=== PATIENT | female | born 1975 | race Caucasian/White ===

== ENCOUNTER 2018-04-06 19:17 | Emergency (ER) | payer OTHER ==
[2018-04-06 19:29] VITALS: RESP 18
[2018-04-06] MEDS ORDERED: SODIUM CHLORIDE 0.9% 1,000 ML IV STA ×2 (19:35)
[2018-04-06] MEDS ORDERED: KETOROLAC 30 MG/ML 1 ML VIAL IVP STA (19:35)
[2018-04-06] MEDS ORDERED: RX INFO: IV CONTRAST WAS GIVEN 1 EACH MISC MISCELLANE PRN (19:35)
--- NOTE | 2018-04-06 19:38 | ED ---
Abdominal Pain HPI - General Chief Complaint: Abdominal Pain Stated Complaint: Female Time Seen by Provider: 04/06/18 19:29 Source: patient Mode of arrival: ambulatory Limitations: no limitations - History of Present Illness Initial Comments: This 42-year-old white female presents with a complaint of abdominal pain which started yesterday. She states that it started fairly suddenly and is fairly severe. She relates that it is diffuse in nature but worse in the left upper quadrant more than the right upper quadrant but also into the midepigastric region. She has some slight left flank pain as well. She denies any nausea, vomiting, constipation, diarrhea, fever, or chills. She apparently had some hematuria yesterday. She was seen at the urgent care and they diagnosed her with a urinary tract infection and put her on some antibiotics. She states that it is more severe she lies on her left side. She denies any other complaints or modifying factors. She does have a history of kidney stones when she was 18 years old but this pain is somewhat different. No other complaints or modifying factors. - Related Data Home Medications Medication Instructions Recorded Confirmed Dextroamphetamine/Amphetamine 20 mg PO BID 08/16/16 04/06/18 [Adderall] Previous Rx's Medication Instructions Recorded Nitrofurantoin Monohyd/M-Cryst 100 mg PO Q12HR #6 cap 04/06/18 [Macrobid] traMADol HCl [Ultram] 50 - 100 mg PO Q6H PRN #15 tab 04/06/18 Allergies Allergy/AdvReac Type Severity Reaction Status Date / Time No Known Allergies Allergy Verified 04/06/18 19:46 Review of Systems ROS Statement: Those systems with pertinent positive or pertinent negative responses have been documented in the HPI. ROS Other: All systems not noted in ROS Statement are negative. Past Medical History Past Medical History: No Reported History History of Any Multi-Drug Resistant Organisms: None Reported Past Surgical History: No Surgical Hx Reported Past Anesthesia/Blood Transfusion Reactions: Motion Sickness Additional Past Anesthesia/Blood Transfusion Reaction / Comment(s): MILD MOTION SICKNESS. ONLY LOCAL ANESTHESIA, NO REACTION. Past Psychological History: ADD/ADHD, Anxiety Smoking Status: Current every day smoker Past Alcohol Use History: Rare Past Drug Use History: None Reported - Past Family History Father Family Medical History: Cancer General Exam - General Exam Comments Initial Comments: GENERAL: The patient is well nourished and well hydrated. VITAL SIGNS: Heart rate, blood pressure, respiratory rate reviewed as recorded in nurse's notes. EYES: Pupils are round and reactive. Extraocular movements are intact. No conjunctival / lid redness or swelling. ENT: No external evidence of injury, swelling, or ecchymosis. Airway is patent. Throat is clear. NECK: Nontender. No swelling or evidence of injury. No subcutaneous emphysema. Trachea is midline. No thyroid mass. HEART: Regular rate and rhythm. Good peripheral pulses. LUNGS/CHEST: Breath sounds clear and equal bilaterally. No rales, rhonchi, or wheezes. No ecchymosis, subcutaneous emphysema, or tenderness. ABDOMEN: There is diffuse abdominal tenderness somewhat worse in the left upper abdomen. There is some tenderness into the left flank as well. No palpable masses or organomegaly. No peritoneal signs. No abdominal wall swelling or ecchymosis. EXTREMITIES: No extremity tenderness. Normal muscle tone and function. No thoracolumbar tenderness. NEUROLOGIC: Sensation is grossly intact. Cranial nerve exam reveals face is symmetrical, tongue is midline, speech is clear. SKIN: No abrasions or ecchymosis is noted. No induration or masses noted. PSYCHIATRIC: Alert and oriented. Appropriate behavior and judgment. Limitations: no limitations Course Vital Signs 04/06/18 04/06/18 19:27 21:25 Temperature 98.9 F Pulse Rate 93 83 Respiratory 18 18 Rate Blood Pressure 126/71 107/64 O2 Sat by Pulse 96 99 Oximetry Medical Decision Making - Medical Decision Making The patient was seen and examined. All diagnostics were reviewed. An IV is started and she is hydrated. She does receive some Toradol. She has significant relief with the Toradol. The laboratory does show slight leukocytosis. The urine does show evidence of an infection. She receives a gram of Rocephin intravenously. The computed tomography scan of the abdomen and pelvis does not show any acute significant abnormalities other than a slightly enlarged uterus. The radiologist recommends follow-up in this regard with a pelvic ultrasound. This does not correlate with her current pain as her pain is primarily into the left upper abdomen and flank. It is felt as though she likely does have a pyelonephritis and urinary tract infection. It is felt as though she is stable for outpatient treatment. She is instructed to follow- up with her cultures with her primary doctor in 3 days. Return parameters are discussed. She does relate that she was prescribed Macrodantin for 7 days through the urgent care. OP prescribed another 3 days' worth of the antibiotic for a total of 10 days. - Lab Data Result diagrams: 04/06/18 20:08 04/06/18 20:08 Lab Results 04/06/18 04/06/18 04/06/18 Range/Units 20:08 20:08 20:08 WBC 11.0 H (3.8-10.6) k/uL RBC 3.99 (3.80-5.40) m/uL Hgb 12.6 (11.4-16.0) gm/dL Hct 37.8 (34.0-46.0) % MCV 94.7 (80.0-100.0) fL MCH 31.6 (25.0-35.0) pg MCHC 33.3 (31.0-37.0) g/dL RDW 12.6 (11.5-15.5) % Plt Count 283 (150-450) k/uL Neutrophils % 83 % Lymphocytes % 9 % Monocytes % 5 % Eosinophils % 1 % Basophils % 0 % Neutrophils # 9.1 H (1.3-7.7) k/uL Lymphocytes # 1.0 (1.0-4.8) k/uL Monocytes # 0.6 (0-1.0) k/uL Eosinophils # 0.1 (0-0.7) k/uL Basophils # 0.0 (0-0.2) k/uL PT 10.5 (9.0-12.0) sec INR 1.1 (<1.2) APTT 26.5 (22.0-30.0) sec Sodium 141 (137-145) mmol/L Potassium 3.8 (3.5-5.1) mmol/L Chloride 103 (98-107) mmol/L Carbon Dioxide 26 (22-30) mmol/L Anion Gap 12 mmol/L BUN 7 (7-17) mg/dL Creatinine 0.63 (0.52-1.04) mg/dL Est GFR (CKD-EPI)AfAm >90 (>60 ml/min/1.73 sqM) Est GFR (CKD-EPI)NonAf >90 (>60 ml/min/1.73 sqM) Glucose 93 (74-99) mg/dL Calcium 9.2 (8.4-10.2) mg/dL Total Bilirubin 0.5 (0.2-1.3) mg/dL AST 16 (14-36) U/L ALT 24 (9-52) U/L Alkaline Phosphatase 79 (38-126) U/L Total Protein 6.7 (6.3-8.2) g/dL Albumin 3.9 (3.5-5.0) g/dL Amylase 46 (30-110) U/L Lipase 24 (23-300) U/L Urine Color Urine Appearance (Clear) Urine pH (5.0-8.0) Ur Specific [place] (1.001-1.035) Urine Protein (Negative) Urine Glucose (UA) (Negative) Urine Ketones (Negative) Urine Blood (Negative) Urine Nitrite (Negative) Urine Bilirubin (Negative) Urine Urobilinogen (<2.0) mg/dL Ur Leukocyte Esterase (Negative) Urine RBC (0-5) /hpf Urine WBC (0-5) /hpf Ur Squamous Epith Cells (0-4) /hpf Urine HCG, Qual (Not Detectd) 04/06/18 04/06/18 Range/Units 20:08 20:08 WBC (3.8-10.6) k/uL RBC (3.80-5.40) m/uL Hgb (11.4-16.0) gm/dL Hct (34.0-46.0) % MCV (80.0-100.0) fL MCH (25.0-35.0) pg MCHC (31.0-37.0) g/dL RDW (11.5-15.5) % Plt Count (150-450) k/uL Neutrophils % % Lymphocytes % % Monocytes % % Eosinophils % % Basophils % % Neutrophils # (1.3-7.7) k/uL Lymphocytes # (1.0-4.8) k/uL Monocytes # (0-1.0) k/uL Eosinophils # (0-0.7) k/uL Basophils # (0-0.2) k/uL PT (9.0-12.0) sec INR (<1.2) APTT (22.0-30.0) sec Sodium (137-145) mmol/L Potassium (3.5-5.1) mmol/L Chloride (98-107) mmol/L Carbon Dioxide (22-30) mmol/L Anion Gap mmol/L BUN (7-17) mg/dL Creatinine (0.52-1.04) mg/dL Est GFR (CKD-EPI)AfAm (>60 ml/min/1.73 sqM) Est GFR (CKD-EPI)NonAf (>60 ml/min/1.73 sqM) Glucose (74-99) mg/dL Calcium (8.4-10.2) mg/dL Total Bilirubin (0.2-1.3) mg/dL AST (14-36) U/L ALT (9-52) U/L Alkaline Phosphatase (38-126) U/L Total Protein (6.3-8.2) g/dL Albumin (3.5-5.0) g/dL Amylase (30-110) U/L Lipase (23-300) U/L Urine Color Yellow Urine Appearance Cloudy H (Clear) Urine pH 7.0 (5.0-8.0) Ur Specific [place] 1.015 (1.001-1.035) Urine Protein Trace H (Negative) Urine Glucose (UA) Negative (Negative) Urine Ketones Negative (Negative) Urine Blood Large H (Negative) Urine Nitrite Negative (Negative) Urine Bilirubin Negative (Negative) Urine Urobilinogen 2.0 (<2.0) mg/dL Ur Leukocyte Esterase Large H (Negative) Urine RBC 8 H (0-5) /hpf Urine WBC 18 H (0-5) /hpf Ur Squamous Epith Cells 45 H (0-4) /hpf Urine HCG, Qual Not Detected (Not Detectd) Disposition Clinical Impression: Abdominal pain, Pyelonephritis, Urinary tract infection, Enlarged uterus Disposition: HOME SELF-CARE Condition: Good Instructions: Abdominal Pain (ED), Urinary Tract Infection in Women (ED), Kidney Infection (ED) Additional Instructions: The radiologist recommends that he follow up with a pelvic ultrasound for an enlarged uterus. Please see her primary care physician in this regard. Please also follow-up with the culture results of your urine in 3 days. Prescriptions: Nitrofurantoin Monohyd/M-Cryst [Macrobid] 100 mg PO Q12HR #6 cap traMADol HCl [Ultram] 50 - 100 mg PO Q6H PRN #15 tab PRN Reason: Pain Is patient prescribed a controlled substance at d/c from ED?: Yes Referrals: Cathie Hussein III, MD [Primary Care Provider] - 1-2 days Time of Disposition: 21:54
[2018-04-06 20:33] LABS: Basophils % (A) 0 %; Eosinophils # (A) 0.1 k/uL (0-0.7); Eosinophils % (A) 1 %; HCT 37.8 % (34.0-46.0); HGB 12.6 gm/dL (11.4-16.0); Lymphocytes % (A) 9 %; MCH 31.6 pg (25.0-35.0); MCHC 33.3 g/dL (31.0-37.0); MCV 94.7 fL (80.0-100.0); Mean Platelet Volume 7.3; Monocytes # (A) 0.6 k/uL (0-1.0); Monocytes % (A) 5 %; Neutrophils # (A) 9.1 k/uL (1.3-7.7); Neutrophils % (A) 83 %; Platelet Count 283 k/uL (150-450); RBC 3.99 m/uL (3.80-5.40); RDW 12.6 % (11.5-15.5)
[2018-04-06 20:41] LABS: INR 1.1 (<1.2); Partial Thromboplastin Time 26.5 sec (22.0-30.0); Prothrombin Time 10.5 sec (9.0-12.0)
[2018-04-06 20:43] LABS: ALT 24 U/L (9-52); AST 16 U/L (14-36); Albumin 3.9 g/dL (3.5-5.0); Alkaline Phosphatase 79 U/L (38-126); Amylase 46 U/L (30-110); Anion Gap 12 mmol/L; Appearance,Urine Cloudy (Clear); Bilirubin,Urine Negative (Negative); Blood Urea Nitrogen 7 mg/dL (7-17); Blood,Urine Large (Negative); Calcium 9.2 mg/dL (8.4-10.2); Carbon Dioxide 26 mmol/L (22-30); Chloride 103 mmol/L (98-107); Color,Urine Yellow; Glucose 93 mg/dL (74-99); Glucose,Urine (UA) Negative (Negative); Ketones,Urine Negative (Negative); Leukocyte Esterase,Urine Large (Negative); Lipase 24 U/L (23-300); Nitrite,Urine Negative (Negative); Potassium 3.8 mmol/L (3.5-5.1); Protein,Urine Trace (Negative); RBC,Urine 8 /hpf (0-5); Sodium 141 mmol/L (137-145); Specific Gravity,Urine 1.015 (1.001-1.035); Squamous Epithelial Cell,Urine 45 /hpf (0-4); Total Bilirubin 0.5 mg/dL (0.2-1.3); Total Protein 6.7 g/dL (6.3-8.2); WBC,Urine 18 /hpf (0-5)
--- NOTE | 2018-04-06 21:43 | CT ---
EXAMINATION TYPE: CT abdomen pelvis w con DATE OF EXAM: 04/06/2018 COMPARISON: NONE HISTORY: Generalized abdominal pain with gross hematuria. CT DLP: 404.5 mGycm Automated exposure control for dose reduction was used. TECHNIQUE: Helical acquisition of images was performed from the lung bases through the pelvis. CONTRAST: Performed without Oral Contrast and with IV Contrast, patient injected with 100 mL of Isovu e 300. FINDINGS: LUNG BASES: No significant abnormality is appreciated. LIVER/GB: No significant abnormality is appreciated. Simple hepatic cyst is noted, measuring 2 cm ant eriorly in the left hepatic lobe medial segment. PANCREAS: No significant abnormality is seen. SPLEEN: No significant abnormality is seen. ADRENALS: No significant abnormality is seen. KIDNEYS: No significant abnormality is seen. A 1 cm simple renal cyst is in the upper pole anteriorly . FREE AIR: No free air is visualized. RETROPERITONEAL ADENOPATHY: None visualized REPRODUCTIVE ORGANS: There is a tiny volume of gas seen within the vaginal fornices. The uterus is re troverted and enlarged and bulky. URINARY BLADDER: No significant abnormality is seen. PELVIC ADENOPATHY: None visualized. OSSEOUS STRUCTURES: No significant abnormality is seen. BOWEL: No significant abnormality is seen. VASCULATURE: Unremarkable. IMPRESSION: IN THIS PATIENT WITH GROSS HEMATURIA AND UNREMARKABLE KIDNEYS AND URETERS AND BLADDER, WOULD RECOMMEN D FURTHER CHARACTERIZATION OF THE ENLARGED UTERUS WITH PELVIC ULTRASOUND.
[2018-04-06] MEDS ORDERED: cefTRIAXone IN SWFI 1,000 MG/10 ML SYRINGE IVP STA (21:52)
[2018-04-06 22:44] VITALS: BP 119/67; PULSE 76; TEMP 97.8
== END 2018-04-06 22:44 | disposition home or self-care (01) ==
LOC: EC 19:17
DX: N12 Tubulo-interstitial nephritis, not specified as acute or chronic (principal); N39.0 Urinary tract infection, site not specified; N85.2 Hypertrophy of uterus; D72.829 Elevated white blood cell count, unspecified; F90.9 Attention-deficit hyperactivity disorder, unspecified type; F17.200 Nicotine dependence, unspecified, uncomplicated; Z87.442 Personal history of urinary calculi; Z79.899 Other long term (current) drug therapy
CPT/HCPCS: 99284; 96374; 96375; 96361 ×2; 36415; 80053; 82150; 83690; 85025; 85610; 85730; 81001; 81025; 74177; J0696; J1885; Q9967

== ENCOUNTER 2018-04-10 13:50 | Emergency (ER) | payer OTHER ==
[2018-04-10 13:57] VITALS: TEMP 98.3
[2018-04-10] MEDS ORDERED: KETOROLAC 30 MG/ML 1 ML VIAL IVP STA (14:22)
[2018-04-10] MEDS ORDERED: SODIUM CHLORIDE 0.9% 1,000 ML IV ONE ×2 (14:22)
[2018-04-10 14:46] LABS: Basophils % (A) 0 %; Eosinophils # (A) 0.1 k/uL (0-0.7); Eosinophils % (A) 2 %; HCT 36.4 % (34.0-46.0); HGB 12.3 gm/dL (11.4-16.0); Lymphocytes # (A) 1.1 k/uL (1.0-4.8); Lymphocytes % (A) 13 %; MCH 32.3 pg (25.0-35.0); MCHC 33.9 g/dL (31.0-37.0); MCV 95.2 fL (80.0-100.0); Mean Platelet Volume 6.9; Monocytes # (A) 0.5 k/uL (0-1.0); Monocytes % (A) 6 %; Neutrophils # (A) 6.4 k/uL (1.3-7.7); Neutrophils % (A) 78 %; Platelet Count 316 k/uL (150-450); RBC 3.82 m/uL (3.80-5.40); RDW 12.6 % (11.5-15.5); WBC 8.2 k/uL (3.8-10.6)
[2018-04-10 14:54] LABS: HCG,Qualitative Serum Not Detected
[2018-04-10 14:56] LABS: INR 1.1 (<1.2); Partial Thromboplastin Time 27.9 sec (22.0-30.0); Prothrombin Time 10.3 sec (9.0-12.0)
[2018-04-10 15:01] LABS: ALT 32 U/L (9-52); AST 24 U/L (14-36); Albumin 3.7 g/dL (3.5-5.0); Alkaline Phosphatase 87 U/L (38-126); Amylase 52 U/L (30-110); Anion Gap 12 mmol/L; Blood Urea Nitrogen 8 mg/dL (7-17); Calcium 9.1 mg/dL (8.4-10.2); Carbon Dioxide 26 mmol/L (22-30); Chloride 103 mmol/L (98-107); Glucose 100 mg/dL (74-99); Lipase 18 U/L (23-300); Potassium 4.3 mmol/L (3.5-5.1); Sodium 141 mmol/L (137-145); Total Bilirubin 0.4 mg/dL (0.2-1.3); Total Protein 6.6 g/dL (6.3-8.2)
[2018-04-10 15:02] LABS: Appearance,Urine Clear (Clear); Bilirubin,Urine Negative (Negative); Blood,Urine Large (Negative); Color,Urine Yellow; Glucose,Urine (UA) Negative (Negative); Ketones,Urine 1+ (Negative); Leukocyte Esterase,Urine Negative (Negative); Mucus,Urine Rare /hpf; Nitrite,Urine Negative (Negative); PH, Urine 5.5 (5.0-8.0); Protein,Urine Negative (Negative); RBC,Urine 5 /hpf (0-5); Specific Gravity,Urine 1.009 (1.001-1.035); Squamous Epithelial Cell,Urine 3 /hpf (0-4); Urobilinogen,Urine <2.0 mg/dL (<2.0); WBC,Urine 4 /hpf (0-5)
--- NOTE | 2018-04-10 15:50 | US ---
EXAMINATION TYPE: US transvaginal DATE OF EXAM: 04/10/2018 COMPARISON: CLINICAL HISTORY: pain. Patient states having a UTI. Spotting. TECHNIQUE: Transvaginal (TV). Date of LMP: 03/25/2018, EXAM MEASUREMENTS: Uterus: 7.6 x 5.1 x 4.1 cm Endometrial Stripe: 0.4 cm Right Ovary: 3.6 x 2.0 x 1.9 cm Left Ovary: 4.5 x 2.9 x 2.3 cm 1. Uterus: Retroverted RAUL circular lesion seen = 1.1 x 1.2 x 1.1 cm 2. Endometrium: wnl 3. Right Ovary: heterogenous follicle seen with peripheral vascular flow = 1.1 x 1.3 x 0.7 cm 4. Left Ovary: Hypoechoic nonvascular lesion seen- 2.6 x 2.2 x 2.4 cm. This demonstrates homogeneous internal echoes. Spectral, color and waveform doppler imaging shows good arterial and venous flow within the ovaries ; there is no evidence for ovarian torsion. 5. Bilateral Adnexa: wnl 6. Posterior cul-de-sac: no free fluid Cervix- nabothian cysts IMPRESSION: 1. Left ovarian 2.6 cm lesion that may represent a hemorrhagic cyst or endometrioma. Follow-up is rec ommended in 3 menstrual cycles to ensure resolution. If this persists endometrioma should be favored. 2. Lower uterine segment exophytic intramural or subserosal leiomyoma within the retroverted uterus m easuring 1.2 cm.
--- NOTE | 2018-04-10 16:07 | ED ---
Female Urogenital HPI - General Chief complaint: Urogenital Stated complaint: UTI Time Seen by Provider: 04/10/18 14:09 Source: patient Mode of arrival: ambulatory Limitations: no limitations - History of Present Illness Initial comments: This 42-year-old white female presents with a complaint of some abdominal pain. This is diffuse in nature but somewhat worse in the right lower abdomen. She was just here 4 days ago for somewhat similar evaluation. At that time she did have a urinary tract infection. They also found that her endometrium/uterus was enlarged and they recommended pelvic ultrasound which was ordered for an outpatient basis. She states that the pain has continued. It is better with the Ultram. She states that it is fairly severe. She is denying any urinary symptoms currently. She was placed on Macrobid for possible urinary tract infection and possible pyelonephritis and she has been taking this. She denies any fevers or chills. She has had decreased appetite. She has been drinking significant amount of fluids. She does relate that she started having some vaginal bleeding over the last couple of days and passed some clots and there is a moderate amount. She does relate that the pain has been fairly persistent now for approximately one week. She has had a history of ovarian cysts a long time ago. She denies any history of endometriosis. She denies any frequency urgency or dysuria. She denies any vaginal discharge but states that there could be a possibility of sexually transmitted infections. She used to have an [facility] doctor in this area but her insurance changed and she has not been able to follow-up for some time but is in the process of finding another one. No other complaints or modifying factors. - Related Data Home Medications Medication Instructions Recorded Confirmed Dextroamphetamine/Amphetamine 20 mg PO BID 08/16/16 04/10/18 [Adderall] Previous Rx's Medication Instructions Recorded Nitrofurantoin Monohyd/M-Cryst 100 mg PO Q12HR #6 cap 04/06/18 [Macrobid] traMADol HCl [Ultram] 50 - 100 mg PO Q6H PRN #15 tab 04/06/18 traMADol HCl [Ultram] 50 - 100 mg PO Q6H PRN #15 tab 04/10/18 Allergies Allergy/AdvReac Type Severity Reaction Status Date / Time No Known Allergies Allergy Verified 04/10/18 14:13 Review of Systems ROS Statement: Those systems with pertinent positive or pertinent negative responses have been documented in the HPI. ROS Other: All systems not noted in ROS Statement are negative. Past Medical History Past Medical History: No Reported History History of Any Multi-Drug Resistant Organisms: None Reported Past Surgical History: No Surgical Hx Reported Past Anesthesia/Blood Transfusion Reactions: Motion Sickness Additional Past Anesthesia/Blood Transfusion Reaction / Comment(s): MILD MOTION SICKNESS. ONLY LOCAL ANESTHESIA, NO REACTION. Past Psychological History: ADD/ADHD, Anxiety Smoking Status: Current every day smoker Past Alcohol Use History: Rare Past Drug Use History: None Reported - Past Family History Father Family Medical History: Cancer General Exam - General Exam Comments Initial Comments: GENERAL: The patient is well nourished and well hydrated. VITAL SIGNS: Heart rate, blood pressure, respiratory rate reviewed as recorded in nurse's notes. EYES: Pupils are round and reactive. Extraocular movements are intact. No conjunctival / lid redness or swelling. ENT: No external evidence of injury, swelling, or ecchymosis. Airway is patent. Throat is clear. NECK: Nontender. No swelling or evidence of injury. No subcutaneous emphysema. Trachea is midline. No thyroid mass. HEART: Regular rate and rhythm. Good peripheral pulses. LUNGS/CHEST: Breath sounds clear and equal bilaterally. No rales, rhonchi, or wheezes. No ecchymosis, subcutaneous emphysema, or tenderness. ABDOMEN: There is mild diffuse abdominal tenderness. No palpable masses or organomegaly. No peritoneal signs. No abdominal wall swelling or ecchymosis. EXTREMITIES: No extremity tenderness. Normal muscle tone and function. No thoracolumbar tenderness. NEUROLOGIC: Sensation is grossly intact. Cranial nerve exam reveals face is symmetrical, tongue is midline, speech is clear. SKIN: No abrasions or ecchymosis is noted. No induration or masses noted. PSYCHIATRIC: Alert and oriented. Appropriate behavior and judgment. Pelvic exam: There is some mild vaginal bleeding noted. There is no adnexal, uterine, cervical tenderness noted. There is no perineal lesions. Limitations: no limitations Course Vital Signs 04/10/18 13:53 Temperature 98.3 F Pulse Rate 87 Respiratory 18 Rate Blood Pressure 113/72 O2 Sat by Pulse 100 Oximetry Medical Decision Making - Medical Decision Making The patient was seen and examined. All diagnostics were reviewed. An IV is started and she is hydrated. She does receive some Toradol with some moderate relief. The laboratory overall is unremarkable. The urinalysis is improved and does not show any current evidence of infection. The patient also had a pelvic ultrasound which does show evidence of a 2.6 cm left ovarian cyst which the radiologist notes that an endometrioma the possibility is well. This is discussed with the patient. Overall, the exact cause of her abdominal and pelvic pain is not definitively determined. The possibility of it being related to an ovarian cysts, endometrioma, endometriosis, resolving pyelonephritis, and UTI are certainly possibilities. The possibility of this being related to significant dysmenorrhea certainly possible as well. Nevertheless, it is felt as though she benefit from close [facility] follow-up. Cultures are taken but there is no evidence of infection noted on exam or laboratory analysis and it is felt as though she can follow up with these cultures with her PCP or [facility]. Return parameters were discussed. - Lab Data Result diagrams: 04/10/18 14:36 04/10/18 14:36 Lab Results 04/10/18 04/10/18 04/10/18 Range/Units 14:36 14:36 14:36 WBC 8.2 (3.8-10.6) k/uL RBC 3.82 (3.80-5.40) m/uL Hgb 12.3 (11.4-16.0) gm/dL Hct 36.4 (34.0-46.0) % MCV 95.2 (80.0-100.0) fL MCH 32.3 (25.0-35.0) pg MCHC 33.9 (31.0-37.0) g/dL RDW 12.6 (11.5-15.5) % Plt Count 316 (150-450) k/uL Neutrophils % 78 % Lymphocytes % 13 % Monocytes % 6 % Eosinophils % 2 % Basophils % 0 % Neutrophils # 6.4 (1.3-7.7) k/uL Lymphocytes # 1.1 (1.0-4.8) k/uL Monocytes # 0.5 (0-1.0) k/uL Eosinophils # 0.1 (0-0.7) k/uL Basophils # 0.0 (0-0.2) k/uL PT 10.3 (9.0-12.0) sec INR 1.1 (<1.2) APTT 27.9 (22.0-30.0) sec Sodium 141 (137-145) mmol/L Potassium 4.3 (3.5-5.1) mmol/L Chloride 103 (98-107) mmol/L Carbon Dioxide 26 (22-30) mmol/L Anion Gap 12 mmol/L BUN 8 (7-17) mg/dL Creatinine 0.55 (0.52-1.04) mg/dL Est GFR (CKD-EPI)AfAm >90 (>60 ml/min/1.73 sqM) Est GFR (CKD-EPI)NonAf >90 (>60 ml/min/1.73 sqM) Glucose 100 H (74-99) mg/dL Calcium 9.1 (8.4-10.2) mg/dL Total Bilirubin 0.4 (0.2-1.3) mg/dL AST 24 (14-36) U/L ALT 32 (9-52) U/L Alkaline Phosphatase 87 (38-126) U/L Total Protein 6.6 (6.3-8.2) g/dL Albumin 3.7 (3.5-5.0) g/dL Amylase 52 (30-110) U/L Lipase 18 L (23-300) U/L HCG, Qual Not Detected Urine Color Urine Appearance (Clear) Urine pH (5.0-8.0) Ur Specific [place] (1.001-1.035) Urine Protein (Negative) Urine Glucose (UA) (Negative) Urine Ketones (Negative) Urine Blood (Negative) Urine Nitrite (Negative) Urine Bilirubin (Negative) Urine Urobilinogen (<2.0) mg/dL Ur Leukocyte Esterase (Negative) Urine RBC (0-5) /hpf Urine WBC (0-5) /hpf Ur Squamous Epith Cells (0-4) /hpf Urine Mucus (None) /hpf 04/10/18 Range/Units 14:36 WBC (3.8-10.6) k/uL RBC (3.80-5.40) m/uL Hgb (11.4-16.0) gm/dL Hct (34.0-46.0) % MCV (80.0-100.0) fL MCH (25.0-35.0) pg MCHC (31.0-37.0) g/dL RDW (11.5-15.5) % Plt Count (150-450) k/uL Neutrophils % % Lymphocytes % % Monocytes % % Eosinophils % % Basophils % % Neutrophils # (1.3-7.7) k/uL Lymphocytes # (1.0-4.8) k/uL Monocytes # (0-1.0) k/uL Eosinophils # (0-0.7) k/uL Basophils # (0-0.2) k/uL PT (9.0-12.0) sec INR (<1.2) APTT (22.0-30.0) sec Sodium (137-145) mmol/L Potassium (3.5-5.1) mmol/L Chloride (98-107) mmol/L Carbon Dioxide (22-30) mmol/L Anion Gap mmol/L BUN (7-17) mg/dL Creatinine (0.52-1.04) mg/dL Est GFR (CKD-EPI)AfAm (>60 ml/min/1.73 sqM) Est GFR (CKD-EPI)NonAf (>60 ml/min/1.73 sqM) Glucose (74-99) mg/dL Calcium (8.4-10.2) mg/dL Total Bilirubin (0.2-1.3) mg/dL AST (14-36) U/L ALT (9-52) U/L Alkaline Phosphatase (38-126) U/L Total Protein (6.3-8.2) g/dL Albumin (3.5-5.0) g/dL Amylase (30-110) U/L Lipase (23-300) U/L HCG, Qual Urine Color Yellow Urine Appearance Clear (Clear) Urine pH 5.5 (5.0-8.0) Ur Specific [place] 1.009 (1.001-1.035) Urine Protein Negative (Negative) Urine Glucose (UA) Negative (Negative) Urine Ketones 1+ H (Negative) Urine Blood Large H (Negative) Urine Nitrite Negative (Negative) Urine Bilirubin Negative (Negative) Urine Urobilinogen <2.0 (<2.0) mg/dL Ur Leukocyte Esterase Negative (Negative) Urine RBC 5 (0-5) /hpf Urine WBC 4 (0-5) /hpf Ur Squamous Epith Cells 3 (0-4) /hpf Urine Mucus Rare H (None) /hpf Disposition Clinical Impression: Abdominal pain, Dysmenorrhea, Ovarian cyst, Dysfunctional uterine bleeding Disposition: HOME SELF-CARE Condition: Good Instructions: Abdominal Pain (ED), Dysmenorrhea (ED), Dysfunctional Uterine Bleeding (ED), Ovarian Cyst (ED) Additional Instructions: Please follow-up with your pelvic cultures in approximately 3 days. He also may utilize Tylenol and/or Motrin as needed for pain. Please continue with the antibiotics until complete. Please follow-up with an [facility] doctor as soon as possible. Prescriptions: traMADol HCl [Ultram] 50 - 100 mg PO Q6H PRN #15 tab PRN Reason: Pain Is patient prescribed a controlled substance at d/c from ED?: Yes Referrals: Cathie Hussein III, MD [Primary Care Provider] - 1-2 days Time of Disposition: 16:27
[2018-04-10 16:43] VITALS: BP 112/70; PULSE 85; RESP 16
[2018-04-13 08:29] LABS: C. trachomatis,PCR Positive (Neg,Equiv); Chlamydia trachomatis Source Vagina; N. gonorrhoeae,PCR Negative (Neg,Equiv); Neisseria Source Vagina
== END 2018-04-10 16:43 | disposition home or self-care (01) ==
LOC: EC 13:50
DX: N83.202 Unspecified ovarian cyst, left side (principal); N94.6 Dysmenorrhea, unspecified; N93.8 Other specified abnormal uterine and vaginal bleeding; F17.200 Nicotine dependence, unspecified, uncomplicated; F90.9 Attention-deficit hyperactivity disorder, unspecified type; Z79.899 Other long term (current) drug therapy
CPT/HCPCS: 36415; 80053; 82150; 83690; 85025; 85610; 85730; 81001; 84703; 87808; 87491; 87591; 87070; 87205; 93975; 76830; 99284; 96374; 96361; J1885

== ENCOUNTER → 2019-01-11 | Outpatient (CLI) | payer OTHER ==
--- NOTE | 2019-01-11 11:24 | MM ---
Reason for exam: clinical finding. Last mammogram was performed 3 years ago. Physical Findings: Nurse Summary: 2cm nodule in the left breast at 1-2 o'clock (nurse jenna). MG Diagnostic Mammo w CAD VIDA Bilateral CC and MLO view(s) were taken. LM view(s) were taken of the left breast. Prior study comparison: January 16, 2016, bilateral MG 3d screening mammo w/cad. The breast tissue is heterogeneously dense. This may lower the sensitivity of mammography. Suggestion of 3 posterior 2 o'clock round masses, suspected cysts. These are larger/new. These results were verbally communicated with the patient and result sheet given to the patient on 01/11/19. ASSESSMENT: Incomplete: need additional imaging evaluation, BI-RAD 0 RECOMMENDATION: Ultrasound of the left breast. (upper outer quadrant)
--- NOTE | 2019-01-11 11:27 | USB ---
Reason for exam: additional evaluation requested from abnormal screening. US Breast Limited LT Left limited breast ultrasound including focal area of concern, retroareolar and axilla demonstrates a 1.6 x 1.4 x 1.7cm oval, cystic lesion with debris at 2 o'clock and a 1.6 x 1.2 x 2.4cm oval, cystic lesion with debris at 2 o'clock, questionable two side by side versus one. Corresponds well to the mammographic findings and are benign. These results were verbally communicated with the patient and result sheet given to the patient on 01/11/19. ASSESSMENT: Benign, BI-RAD 2 RECOMMENDATION: Routine screening mammogram of both breasts in 1 year. Manage patient on a clinical basis. If the left breast cysts become symptomatic, ultrasound guided aspiration can be considered.
== END | disposition home or self-care (01) ==
LOC: RADMAMWWP 09:57
PROVIDERS: ATTEND Family Medicine
DX: N63.0 Unspecified lump in unspecified breast (principal); R92.8 Other abnormal and inconclusive findings on diagnostic imaging of breast
CPT/HCPCS: 77066

== ENCOUNTER → 2023-04-08 | Outpatient (CLI) | payer OTHER ==
[2023-04-08 10:09] VITALS: BP 124/84; PULSE 80; RESP 16; TEMP 97.8
--- NOTE | 2023-04-08 11:00 | P.HPOB ---
History of Present Illness H&P Date: 04/08/23 Chief Complaint: The patient is here for her routine gynecologic exam and ma mmogram. This is a 47-year-old G3 5 P3 023 with an LMP of 03/29/2023. The patient is here to establish with this office. It has been about 1-1/2 years since her last pelvic exam. She states her menstrual periods were regular up until about 3 or 4 months ago. She went 63 days without a menstrual period then went 33 days for the next menstrual period. She has had a rare hot flash recently. She is currently not using anything for control. Review of Systems The patient has gained about 30 pounds over the past 2 years. She attributes this to decreased activity, but will be increasing her activity because of a job change. She denies respiratory, cardiac, or G.I. problems. 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 History of Any Multi-Drug Resistant Organisms: None Reported Past Surgical History: No Surgical Hx Reported Additional Past Surgical History / Comment(s): VTPx2 Past Anesthesia/Blood Transfusion Reactions: Motion Sickness Additional Past Anesthesia/Blood Transfusion Reaction / Comment(s): MILD MOTION SICKNESS. ONLY LOCAL ANESTHESIA, NO REACTION. Past Psychological History: ADD/ADHD (She denies current depression.), Anxiety Smoking Status: Former smoker Past Alcohol Use History: Occasional (7-10 drinks every 2 weeks.) Additional Past Alcohol Use History / Comment(s): SMOKED 17 YEARS, 1/2 PPD- Quit in 2019. Past Drug Use History: None Reported Additional History: She is and has been with her boyfriend since 2021. The do not live together. 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 - Past Family History Father Family Medical History: Cancer Additional Family Medical History / Comment(s): Brain cancer. . Paternal grandmother had gastric cancer. Mother Family Medical History: No Reported History Additional Family Medical History / Comment(s): Maternal grandfather had colon cancer. Medications and Allergies Home Medications Medication Instructions Recorded Confirmed Type Dextroamphetamine/Amphetamine 20 mg PO BID 08/16/16 04/08/23 History [Adderall] Allergies Allergy/AdvReac Type Severity Reaction Status Date / Time No Known Allergies Allergy Verified 04/08/23 10:05 Exam Vital Signs Temp Pulse Resp BP Pulse Ox 04/08/23 10:06 97.8 F 80 16 124/84 99 Intake and Output 04/07/23 04/08/23 04/08/23 22:59 06:59 14:59 Other: Weight 75.75 kg Height 5 feet 9 inches, weight 167 pounds, BMI 24.7. This is a well-developed well-nourished white female who is alert and oriented times 3 in no acute distress. HEENT: Within normal limits. NECK: Supple without mass or thyromegaly. CHEST AND LUNGS: Clear to auscultation. HEART: Regular rate and rhythm. BREASTS: Are without mass or discharge. AXILLARY EXAM: Negative for adenopathy. BACK: Negative for CVA tenderness. ABDOMEN: Soft, nontender, without palpable masses. PELVIC EXAM: Normal external genitalia. Cervix and vagina appear normal. There is no unusual discharge. There is no evidence of prolapse. The uterus is retroverted, nongravid size and nontender. There are no palpable adnexal masses or tenderness. RECTAL EXAM: negative for mass or tenderness and is negative for occult blood. EXTREMITIES: Nontender. IMPRESSION: 1. 47-year-old perimenopausal female with normal gynecologic exam. PLAN: 1. Pap smear cotest was performed. GC and chlamydia testing will be done from the Pap smear because of her history of chlamydia treated in 2017. 2. Self breast awareness was discussed with the patient. We have also discussed symptoms associated with inflammatory breast cancer. 3. Screening mammogram will be done today. 4. She will keep a menstrual calendar and call if menstrual problems. 5. She understands there still is a chance that she could get since she still is having menstrual periods. I have recommended that she use a method of control such as condoms. We have discussed other options as well. 6. She was advised to return in one year for her annual well woman exam.
--- NOTE | 2023-04-09 09:17 | MM ---
Reason for Exam: Screening (asymptomatic). Last mammogram was performed 4 year(s) and 3 month(s) ago. Patient History: Menarche at age 9. First Full-Term at age 18. Premenopausal. Patient has history of breast feeding. Last menstrual period: 03/29/2023 Risk Values: Inna 5 year model risk: 0.9%. NCI Lifetime model risk: 8.9%. Prior Study Comparison: 01/16/2016 Bilateral Screening Mammogram, [facility]. 01/11/2019 Bilateral Diagnostic Mammogram, [facility]. Tissue Density: The breast tissue is heterogeneously dense. This may lower the sensitivity of mammography. Findings: Analyzed By CAD. There is no suspicious group of microcalcifications or new suspicious mass in either breast. Decrease appearance of left upper outer breast mass from prior examination. Benign-appearing round calcifications within both breasts. Possible architectural distortion within the upper right breast only on the MLO view. There is no suspicious group of microcalcifications or new suspicious mass in either breast. Decrease appearance of left upper outer breast mass from prior examination. Benign-appearing round calcifications within both breasts. Possible architectural distortion within the upper right breast only on the MLO view at middle depth. Overall Assessment: Incomplete: need additional imaging evaluation, BI-RAD 0 Management: Diagnostic Mammogram of the right breast. A clinical breast exam by your physician is recommended on an annual basis and results should be correlated with mammographic findings. [facility] will attempt to contact patient to return for supplemental views and ultrasound if indicated. Electronically signed and approved by: Emil Ashton D.O.
== END ==
LOC: WWCWWP 09:49
PROVIDERS: ATTEND Obstetrics & Gynecology
DX: Z12.31 Encounter for screening mammogram for malignant neoplasm of breast (principal); Z01.419 Encounter for gynecological examination (general) (routine) without abnormal findings; F17.200 Nicotine dependence, unspecified, uncomplicated
CPT/HCPCS: 77063; 77067

== ENCOUNTER → 2023-04-11 | Outpatient (CLI) | payer OTHER ==
--- NOTE | 2023-04-11 10:39 | MM ---
Reason for Exam: Additional evaluation requested from abnormal screening. Last screening mammogram was performed less than 1 month ago. Patient History: Menarche at age 9. First Full-Term at age 18. Premenopausal. Patient has history of breast feeding. Last menstrual period: 03/29/2023 Risk Values: Inna 5 year model risk: 0.9%. NCI Lifetime model risk: 8.9%. Prior Study Comparison: 01/16/2016 Bilateral Screening Mammogram, [facility]. 01/11/2019 Bilateral Diagnostic Mammogram, [facility]. 04/08/2023 Bilateral MG 3D screening mammo w/cad, [facility]. Tissue Density: Right: The breast tissue is heterogeneously dense. This may lower the sensitivity of mammography. Findings: Analyzed By CAD. No distinct new lesion persists on additional views. Overall Assessment: Negative, BI-RAD 1 Management: Screening Mammogram of both breasts in 1 year. Return to routine follow-up. Results were given to the patient verbally at the time of exam. Patient should continue monthly self-breast exams. A clinical breast exam by your physician is recommended on an annual basis. This exam should not preclude additional follow-up of suspicious palpable abnormalities. Note on Inna scores and lifetime risk: 1. A Inna score greater than 3% is considered moderate risk. If this is the case, consider specialist referral to assess eligibility for a risk reducing agent. 2. If overall lifetime risk for the development of breast cancer is 20% or higher, the patient may qualify for future screening with alternating mammogram and breast MRI. Electronically signed and approved by: Tony Prado M.D.
== END | disposition home or self-care (01) ==
LOC: RADMAMWWP 10:09
PROVIDERS: ATTEND Obstetrics & Gynecology
DX: R92.8 Other abnormal and inconclusive findings on diagnostic imaging of breast (principal)
CPT/HCPCS: 77065; G0279; 77061

== ENCOUNTER → 2025-02-22 | Outpatient (CLI) | payer OTHER ==
[2025-02-22 09:27] VITALS: BP 108/78; PULSE 99; RESP 17; TEMP 98.4
--- NOTE | 2025-02-22 10:32 | P.HPOB ---
History of Present Illness H&P Date: 02/22/25 Chief Complaint: The patient is here for her routine gynecologic exam This is a 49-year-old -0-2-3 with an LMP of 2022. The patient is without gynecologic complaints and denies any postmenopausal bleeding. She denies any significant hot flashes but occasionally feels warm. She self treated for a possible yeast infection about 5 weeks ago and used [id number] Monistat. She denies any current vaginal discharge, vaginal odor, or genital itching. She is currently not seeing anybody at this time, but she states she did get together with an ex-boyfriend during the past month. Review of Systems Has lost about 3 pounds over the past 2 years. Review of systems is otherwise unremarkable. 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 History of Any Multi-Drug Resistant Organisms: None Reported Past Surgical History: No Surgical Hx Reported Additional Past Surgical History / Comment(s): VTPx2 Past Anesthesia/Blood Transfusion Reactions: Motion Sickness Additional Past Anesthesia/Blood Transfusion Reaction / Comment(s): MILD MOTION SICKNESS. ONLY LOCAL ANESTHESIA, NO REACTION. Past Psychological History: ADD/ADHD, Anxiety Smoking Status: Former smoker, Vaper (Daily) Past Alcohol Use History: Occasional (5 drinks every 2 weeks.) Additional Past Alcohol Use History / Comment(s): SMOKED 17 YEARS, 1/2 PPD- Quit in 2019. Past Drug Use History: Marijuana (Occasional use, not daily.) Additional History: She is . She is currently not seeing anybody at this time. - Past Family History Father Family Medical History: Cancer Additional Family Medical History / Comment(s): Brain cancer. . Paternal grandmother had gastric cancer. Mother Family Medical History: No Reported History Additional Family Medical History / Comment(s): Maternal grandfather had colon cancer. Medications and Allergies Home Medications Medication Instructions Recorded Confirmed Type Dextroamphetamine/Amphetamine 20 mg PO BID 08/16/16 02/22/25 History [Adderall] Allergies Allergy/AdvReac Type Severity Reaction Status Date / Time No Known Allergies Allergy Verified 02/22/25 09:22 Exam Vital Signs Temp Pulse Resp BP Pulse Ox 02/22/25 09:23 98.4 F 99 17 108/78 100 Intake and Output 03/31/25 04/01/25 04/01/25 22:59 06:59 14:59 Other: Weight 74.389 kg Height 5 feet 8 inches, weight 164 pounds, BMI 24.9. This is a well-developed well-nourished white female who is alert and oriented times 3 in no acute distress. HEENT: Within normal limits. NECK: Supple without mass or thyromegaly. CHEST AND LUNGS: Clear to auscultation. HEART: Regular rate and rhythm. BREASTS: Are without mass or discharge. AXILLARY EXAM: Negative for adenopathy. BACK: Negative for CVA tenderness. ABDOMEN: Soft, nontender, without palpable masses. PELVIC EXAM: Normal external genitalia. Cervix and vagina appear normal with minimal atrophy. There is a moderate amount of creamy white discharge without odor. There is no cervical motion tenderness. there is no evidence of prolapse. The uterus is midposition, nongravid size and nontender. There are no palpable adnexal masses or tenderness. RECTAL EXAM: Rectovaginal exam is negative for mass or tenderness and is negative for occult blood. EXTREMITIES: Nontender. IMPRESSION: 1. 49-year-old menopausal female with creamy white vaginal discharge. Differential diagnosis will include Candis vaginitis, gonorrhea, chlamydia, bacterial vaginosis, trichomonas, and physiologic discharge 2. Nonmonogamous sexual relations. PLAN: 1. Pap smear was deferred since she had a negative Pap smear cotest on 04/08/2023. 2. Self breast awareness was discussed with the patient. We have also discussed symptoms associated with inflammatory breast cancer. 3. Affirm vaginitis panel was obtained from the vagina. 4. GC and Chlamydia testing were obtained from the cervix. 5. Blood STD testing was recommended. The order slip for HIV RPR, hepatitis B surface antigen, and hepatitis C antibody was given to the patient. She will do this today. STD prevention was discussed. I have stressed the importance of limiting sexual partners and I have recommended using condoms if she is sexually active. 6. Osteoporosis prevention was discussed. I have stressed the importance of adequate calcium, vitamin D and regular exercise. Recommended amounts of calcium and vitamin D were also discussed. 7. She was advised to return in one year for her annual well woman exam and as needed.
[2025-02-22 15:06] LABS: Hepatitis B Surface Antigen Nonreactive (Nonreactive); Hepatitis C IgG Antibody Nonreactive (Nonreactive)
[2025-02-22 21:07] LABS: HIV 2 AB Non-Reactive (Non-Reactive); HIV AB P24 Non-Reactive (Non-Reactive); HIV P24 AG Non-Reactive (Non-Reactive)
[2025-02-23 12:31] LABS: Gardnerella Positive (Negative); Trichomonas Negative (Negative)
--- NOTE | 2025-02-23 14:05 | P.PN ---
Progress Note - Text Progress Note Date: 02/23/25 OUTPATIENT FOLLOW-UP NOTE TEST(S)/RESULTS: Affirm vaginitis panel done on 02/22/2025 was positive for Gardnerella. METHOD OF NOTIFICATION: A message indicating test being positive for bacterial vaginosis was left on the patient's voicemail on 02/23/2025. PATIENT COMMENTS: DIAGNOSIS: Bacterial vaginosis. DISCUSSION: She will be treated with metronidazole 500 mg p.o. twice daily x 7 days. The electronic prescription was sent to [facility] in [place]. PLAN: As above.
== END ==
LOC: WWCWWP 08:56
PROVIDERS: ATTEND Obstetrics & Gynecology
DX: Z01.419 Encounter for gynecological examination (general) (routine) without abnormal findings (principal); N89.8 Other specified noninflammatory disorders of vagina; F17.210 Nicotine dependence, cigarettes, uncomplicated
CPT/HCPCS: 86780; 86803; 87340; 87390; 87480; 87491; 87510; 87591; 87660

== ENCOUNTER → 2025-03-02 | Outpatient (CLI) | payer OTHER ==
--- NOTE | 2025-03-02 15:31 | MM ---
Reason for Exam: Screening (asymptomatic). Last mammogram was performed 1 year(s) and 11 month(s) ago. Patient History: Menarche at age 9. First Full-Term at age 18. Postmenopausal. Patient has history of breast feeding. Risk Values: Inna 5 year model risk: 1.0%. NCI Lifetime model risk: 8.7%. Prior Study Comparison: 01/11/2019 Bilateral Diagnostic Mammogram, [facility]. 04/08/2023 Bilateral MG 3D screening mammo w/cad, [facility] 04/11/2023 Right MG 3D work up w/cad RT, [facility]. Tissue Density: There are scattered areas of fibroglandular density. Findings: Analyzed By CAD. Redemonstrated global asymmetry upper-outer quadrant posterior left breast. Regional calcifications in this region appear to be increasing. Further evaluation with magnification views is recommended. Asymmetric densities posterior upper quadrant right breast with some associated regional calcifications are unchanged. Otherwise, no significant change. Overall Assessment: Incomplete: need additional imaging evaluation, BI-RAD 0 Management: Special View Mammogram of the left breast. [facility] will attempt to contact patient to return for supplemental views and ultrasound if indicated. [facility], , 03/02/2025 3:28 PM. Electronically signed and approved by: Galo Cool M.D. Radiologist
== END | disposition home or self-care (01) ==
LOC: RADMAMWWP 11:00
PROVIDERS: ATTEND Family Medicine
DX: Z12.31 Encounter for screening mammogram for malignant neoplasm of breast (principal); R92.323 Mammographic fibroglandular density, bilateral breasts; Z78.0 Asymptomatic menopausal state
CPT/HCPCS: 77067

== ENCOUNTER → 2025-03-04 | Outpatient (CLI) | payer OTHER ==
--- NOTE | 2025-03-04 08:51 | MM ---
Reason for Exam: Additional evaluation requested from abnormal screening. Last screening mammogram was performed less than 1 month ago. Patient History: Menarche at age 9. First Full-Term at age 18. Postmenopausal. Patient has history of breast feeding. Risk Values: Inna 5 year model risk: 1.0%. NCI Lifetime model risk: 8.7%. Prior Study Comparison: 04/08/2023 Bilateral MG 3D screening mammo w/cad, [facility]. 04/11/2023 Right MG 3D work up w/cad RT, [facility]. 03/02/2025 Bilateral MG screening mammo w CAD, [facility]. Tissue Density: Left: There are scattered areas of fibroglandular density. Findings: Analyzed By CAD. Global asymmetry posterior upper outer quadrant left breast magnification views. No persisting mass is identified. The calcifications here appear regional and either round or amorphous but overall less distinct on magnification. This favors benign etiology and can be reassessed in 6 months. Overall Assessment: Probably benign, BI-RAD 3 Management: Diagnostic Mammogram of the left breast in 6 months. Results were given to the patient verbally at the time of exam. Patient should continue monthly self-breast exams. A clinical breast exam by your physician is recommended on an annual basis. This exam should not preclude additional follow-up of suspicious palpable abnormalities. Note on Inna scores and lifetime risk: 1. A Inna score greater than 3% is considered moderate risk. If this is the case, consider specialist referral to assess eligibility for a risk reducing agent. 2. If overall lifetime risk for the development of breast cancer is 20% or higher, the patient may qualify for future screening with alternating mammogram and breast MRI. [facility], , 03/04/2025 8:48 AM. Electronically signed and approved by: Galo Cool M.D. Radiologist
== END | disposition home or self-care (01) ==
LOC: RADMAMWWP 08:23
PROVIDERS: ATTEND Family Medicine
DX: R92.8 Other abnormal and inconclusive findings on diagnostic imaging of breast (principal); R92.1 Mammographic calcification found on diagnostic imaging of breast; R92.322 Mammographic fibroglandular density, left breast; Z78.0 Asymptomatic menopausal state
CPT/HCPCS: 77065; G0279; 77061